=== PATIENT | male | born 1940 | race Caucasian/White ===

== ENCOUNTER 2022-04-17 19:34 | Emergency (ER) | payer OTHER ==
[~2022-04-17 19:34] MED LIST: AMOXICILLIN500 MG PO
== END 2022-04-17 23:33 | disposition expired ==
LOC: ER1 19:34
DX: I46.9 Cardiac arrest, cause unspecified (principal); I25.10 Atherosclerotic heart disease of native coronary artery without angina pectoris
CPT/HCPCS: 99285